=== PATIENT | female | born 1985 | race Caucasian/White ===

== ENCOUNTER 2016-09-23 08:32 | Day surgery (SDC) | payer OTHER ==
[2016-09-16 10:08] LABS: HEMATOCRIT 41.3 % (36.0-47.0); HEMOGLOBIN 14.1 g/dL (12.0-15.5); MEAN CORPUSCULAR HEMOGLOBIN 28.9 pg (27.0-33.4); MEAN CORPUSCULAR HGB CONC 34.1 g/dL (32.0-36.0); MEAN CORPUSCULAR VOLUME 85 fl (80-97); RED BLOOD COUNT 4.86 10^6/uL (3.72-5.28); RED CELL DISTRIBUTION WIDTH 13.3 % (11.5-14.0); WHITE BLOOD COUNT 15.2 10^3/uL (4.0-10.5)
[2016-09-16 10:12] LABS: APPEARANCE,URINE CLEAR; BILIRUBIN,URINE NEGATIVE (NEGATIVE); GLUCOSE, URINE NEGATIVE (NEGATIVE); KETONES,URINE NEGATIVE (NEGATIVE); LEUKOCYTE ESTERASE,URINE NEGATIVE (NEGATIVE); NITRITE,URINE NEGATIVE (NEGATIVE); PROTEIN,URINE NEGATIVE (NEGATIVE); URINE SPECIFIC GRAVITY 1.005; UROBILINOGEN,URINE NEGATIVE mg/dL (<2.0)
[2016-09-16 10:34] LABS: ALANINE AMINOTRANSFERASE 29 U/L (9-52); ALBUMIN 4.8 g/dL (3.5-5.0); ALKALINE PHOSPHATASE 105 U/L (38-126); ANION GAP 11 (5-19); ASPARTATE AMINO TRANSFERASE 19 U/L (14-36); BILIRUBIN,TOTAL 0.5 mg/dL (0.2-1.3); BLOOD UREA NITROGEN 16 mg/dL (7-20); CALCIUM 10.3 mg/dL (8.4-10.2); CARBON DIOXIDE 25 mmol/L (22-30); CHLORIDE 106 mmol/L (98-107); CREATININE RESULT 0.59 mg/dL (0.52-1.25); GLUCOSE 98 mg/dL (75-110); POTASSIUM 4.6 mmol/L (3.6-5.0); SODIUM 142.1 mmol/L (137-145)
[~2016-09-23 08:32] MED LIST: CEFAZOLIN 2 GM/D5W RTU 2 GM/50 ML RTUPB IV PRN; GABAPENTIN 400 MG CAPSULE PO PRN; LIDOCAINE 0.5% INJ-PF (5 MG/ML) 50 ML SDV SUBCUT PRN; RINGERS SOLUTION,LACTATED 1,000 ML IV PRN
[2016-09-23] MEDS ORDERED: BUPIVACAINE HCL 0.25 % INJ/PF (2.5 MG/1 ML) 30 ML VIAL ONE (09:23)
[2016-09-23] MEDS ORDERED: MIDAZOLAM 2 MG/2 ML INJ ONE (10:42)
[2016-09-23] MEDS ORDERED: FENTANYL CITRATE INJ/PF 250 MCG/5 ML AMPULE ONE (10:42)
[2016-09-23] MEDS ORDERED: MORPHINE SULFATE 10 MG/ML INJ ONE (10:43)
[2016-09-23] MEDS ORDERED: PROPOFOL INJ 200 MG/20 ML VIAL IV ONE (10:43)
[2016-09-23] MEDS ORDERED: SUCCINYLCHOLINE CHLORIDE INJ 200 MG/10 ML VIAL ONE (10:57)
[2016-09-23] MEDS ORDERED: ROCURONIUM BROMIDE INJ 50 MG/5 ML VIAL IV ONE (10:57)
[2016-09-23] MEDS ORDERED: LIDOCAINE 2% INJ-PF (20 MG/ML) 10 ML AMPUL ONE (10:57)
[2016-09-23] MEDS ORDERED: GLYCOPYRROLATE INJ 0.4 MG/2 ML VIAL ONE (10:57)
[2016-09-23] MEDS ORDERED: DEXAMETHASONE SOD PHOSPHATE INJ 4 MG/1 ML VIAL ONE (10:57)
[2016-09-23] MEDS ORDERED: ONDANSETRON HCL INJ/PF 4 MG/2 ML SDV ONE (10:57)
[2016-09-23] MEDS ORDERED: NEOSTIGMINE METHYLSULFATE 10 MG/10 ML VIAL ONE (10:57)
[2016-09-23] MEDS ORDERED: METOCLOPRAMIDE HCL INJ/PF 10 MG/2 ML SDV ONE (10:57)
[2016-09-23] MEDS ORDERED: METHYLENE BLUE INJ/PF 10 MG/1 ML SDV ONE (12:24)
[2016-09-23] MEDS ORDERED: OXYCODONE-ACETAMINOPHEN 5-325 MG TABLET PO PRN ×4 (12:26→12:27)
[2016-09-23] MEDS ORDERED: PROMETHAZINE HCL INJ 25 MG/1 ML VIAL IV PRN ×4 (12:26→12:27)
[2016-09-23] MEDS ORDERED: DIPHENHYDRAMINE HCL 50 MG/ML VIAL IV PRN ×2 (12:26→12:27)
[2016-09-23] MEDS ORDERED: MEPERIDINE HCL/PF INJ 25 MG/1 ML DISP.SYRIN IV PRN ×2 (12:26→12:27)
[2016-09-23] MEDS ORDERED: MORPHINE SULFATE 10 MG/ML INJ IV PRN ×2 (12:26→12:27)
[2016-09-23] MEDS ORDERED: FENTANYL CITRATE INJ/PF 100 MCG/2 ML AMPUL IV PRN ×6 (12:26→12:27)
[2016-09-23] MEDS ORDERED: KETOROLAC TROMETHAMINE INJ/PF 30 MG/1 ML SDV ONE (12:55)
--- NOTE | 2016-09-23 13:03 | PDOC DISCHARGE SUMMARY ---
Discharge Summary (SDC) - Discharge Final Diagnosis: Menorrhagia Dysmenorrhea Date of Surgery: 09/23/16 Condition: Good Forms: Post Operative Treatment or Instructions: Robotic assisted total laparoscopic hysterectomy and bilateral salpingectomy Prescriptions: Oxycodone HCl [Oxaydo] 5 mg PO Q4 PRN #30 tablet.orl PRN Reason: Pain Scale Of 3 Referrals: ORLANDO HERNANDEZ MD [NO LOCAL MD] - (Call [phone] to schedule a 2-4 week post op check up and you may use this number for any concerns questions as well. ) Discharge Diet: As Tolerated Respiratory Treatments at Home: Deep Breathing/Coughing Discharge Activity: Activity As Tolerated, Balance Activity w/Rest, No Lifting Over 10 Pounds - over 20 lbs, No Lifting/Push/Pulling, Pelvic Rest, Slowly Increase Activity, No tub bath - you may shower Home Care Assistance: None Needed Report the Following to Your Physician Immediately: Vomiting, Increase in Pain, Fever over 101 Degrees, Unusual Bleeding, Redness, Swelling, Warmth, Drainage- Foul Smelling, Increased Vaginal Bleed, Large Clots
[2016-09-23] MEDS ORDERED: IBUPROFEN 800 MG TABLET PO PRN ×2 (13:26→13:29)
[2016-09-23] MEDS ORDERED: OXYCODONE HCL IR 5 MG TABLET PO PRN (13:58)
[2016-09-23] MEDS ORDERED: ONDANSETRON HCL INJ/PF 4 MG/2 ML SDV IV PRN (13:59)
[2016-09-23] MEDS ORDERED: NICOTINE 14 MG/24 HR PATCH.TD24 TD ONE (14:15)
[2016-09-23] MEDS ORDERED: ACETAMINOPHEN 100 ML IV SCH (18:00)
[2016-09-23 18:48] VITALS: BP 129/83
[2016-09-23] MEDS ORDERED: [UNRECOGNIZED DRUG - OTHER] PO SCH (22:00)
[2016-09-23] MEDS ORDERED: ESCITALOPRAM OXALATE 10 MG TABLET PO SCH (22:00)
[2016-09-24] MEDS ORDERED: NICOTINE 14 MG/24 HR PATCH.TD24 TD SCH (10:00)
--- NOTE | 2016-09-24 15:08 | OPERATIVE REPORT E ---
Operative Report NAME: BETTY BERNSTEIN : 1985 AGE: 30Y DATE OF SURGERY: 09/23/2016 ROOM: 210 PREOPERATIVE DIAGNOSIS: Menorrhagia and dysmenorrhea. POSTOPERATIVE DIAGNOSIS: Menorrhagia and dysmenorrhea. OPERATION: Robotic assisted total laparoscopic hysterectomy with bilateral salpingectomy. PRIMARY SURGEON: ORLANDO HERNANDEZ M.D. CONTRACT ADMINISTRATION MANAGER SURGEON: DR. SAM HENDRICKS. ANESTHESIA: General endotracheal. COMPLICATIONS: None. ESTIMATED BLOOD LOSS: 150 mL. URINE OUTPUT: Clear at the end of the procedure. SPECIMENS: Uterus, cervix, and bilateral fallopian tubes. FINDINGS: The patient has significant scarring in the anterior uterus near the bladder flap, consistent with her 2 prior C-sections. The uterus was moderately fixed and had no vaginal descent and bilateral ovaries looked normal; otherwise, pelvic anatomy unremarkable. INDICATION: This is a 30-year-old patient with a history of menorrhagia and dysmenorrhea and childbearing complete. She was refractory to medical management for the above problems. After discussing the risks, benefits, and alternatives, including but not limited to, observation, further medical management, endometrial ablation, operative hysteroscopy, open abdominal hysterectomy and total vaginal hysterectomy, were all discussed with the patient and she elected for the above procedure. PROCEDURE: After the patient was properly consented, she was taken to the operating room where general anesthesia was introduced with endotracheal intubation. She was transferred to the dorsal lithotomy position using adjustable Tobi stirrups and prepped and draped in the usual sterile fashion. A surgical timeout was held. A Fisher catheter was then placed in the bladder, and we began with placement of the V-Care medium-sized uterine manipulator in the typical fashion. Gloves were changed and we proceeded above where 0.25% plain Marcaine local anesthetic was used supraumbilically. A 12 mm port skin incision was made with a scalpel, followed by a Veress needle introduction into the peritoneal cavity with correct placement ascertained by a drop in CO2 pressure to 2 mmHg. The pneumoperitoneum was established to a pressure of 15 mmHg. A 12 mm bladeless trocar was advanced into the pneumoperitoneum and immediate visualization with the camera demonstrated atraumatic entry. We subsequently placed 2 right and 1 left lateral port following the typical routine of local anesthetic, followed by a skin incision and the placement of the 8 mm ports under direct visualization. With all ports in place, the patient was put in steep Trendelenburg. The robot was then docked and I scrubbed out and proceeded to the robotic console. Pelvic anatomy was inspected and the findings noted above. The uterus was identified by peristalsis in their usual course at the pelvic brim bilaterally. Dissection was begun on the right side using the vessel sealer and the fenestrated bipolar graspers. The tuboovarian ligament was dissected and this dissection was extended toward the utero-ovarian ligament near the uterine cornua, freeing the fallopian tube from its connections. Then the right round ligament was cauterized and transected. Next the broad ligament was opened and dissected inferiorly and anteriorly to create the bladder flap. Several areas of dissection were carefully completed here, reducing the scar and bladder flap inferiorly along the right side. Then the dissection was continued to connect the fallopian tube and utero-ovarian ligament dissection with that of the round ligament dissection. The broad ligament was then opened and the uterine artery was dissected out, identified and cauterized and transected at the area next to the lower uterine segment. Then being very careful to hug the uterus during this portion of the surgery, dissection was continued along the side of the cervix to the top of the *------*. The same dissection was repeated on the left side. The areas of dissection were noted to be hemostatic. Next, the edge of the V-Care cervical cap was identified. The vessel sealer was switched out for the monopolar scissors. Colpotomy was initiated with monopolar cautery and carried around circumferentially until the specimen was free and pulled through the vagina. The vaginal cuff was closed with running V-Loc suture initially with a 2-0 90-day barbed suture. The suture was found to be weak and broke after 2 throws, completing approximately one-third of the vaginal cuff. At this time a new suture was introduced into the peritoneal cavity. This time a 2-0 Monocryl 180-day delayed absorbable suture with barbs was used. The suture line was initiated again at the right cuff angle and oversewn on top of the initial suture and continued to complete the vaginal cuff closure. Again, this was a 180-day delayed absorbable running V-Loc suture. The pelvis was then irrigated copiously and hemostasis was noted to be excellent. The bladder was back-filled with 60 mL of normal saline and found to be intact with no apparent leakage into the peritoneal cavity. The bladder was deflated and a hemostatic agent was applied to the vaginal intraperitoneally. The abdomen was deflated and the robot was undocked and all instruments were removed. The abdomen was desufflated and the ports were removed as well. The patient was taken out of Trendelenburg and attention was turned to the abdomen where the 12 mm port site fascia was closed with 0 Vicryl stitch and the skin of the 8 mm port sites were closed, as well as the 12 mm port site skin with 4-0 Monocryl in a subcuticular fashion, and a Dermabond dressing was applied. The anesthesia was reversed. Sponge, lap, and needle counts were correct at the end of the procedure, and the patient was taken to the PACU in stable condition. DICTATING PHYSICIAN: ORLANDO HERNANDEZ M.D. [id number] PHY#: [id number] ID: [id number] JOB#: [id number] ACCT: [id number] cc:ORLANDO HERNANDEZ M.D. >
== END 2016-09-23 19:18 | disposition home or self-care (01) ==
LOC: OROUT 08:32 → 2N 14:01 → OROUT 19:18
PROVIDERS: ATTEND Obstetrics & Gynecology
PROC: 0UTC4ZZ Resection of Cervix, Percutaneous Endoscopic Approach (ICD-10-PCS; 2016-09-23)
PROC: 0UT74ZZ Resection of Bilateral Fallopian Tubes, Percutaneous Endoscopic Approach (ICD-10-PCS; 2016-09-23)
PROC: 0UT94ZZ Resection of Uterus, Percutaneous Endoscopic Approach (ICD-10-PCS; principal; 2016-09-23 10:30)
DX: N92.0 Excessive and frequent menstruation with regular cycle (principal); N94.6 Dysmenorrhea, unspecified; N73.6 Female pelvic peritoneal adhesions (postinfective); F17.210 Nicotine dependence, cigarettes, uncomplicated; E66.9 Obesity, unspecified; Z79.1 Long term (current) use of non-steroidal anti-inflammatories (NSAID); Z79.899 Other long term (current) drug therapy; Z88.2 Allergy status to sulfonamides; Z88.5 Allergy status to narcotic agent; Z88.1 Allergy status to other antibiotic agents; Z68.37 Body mass index [BMI] 37.0-37.9, adult
CPT/HCPCS: 86900; 86901; 36415; 86850; 85027; 81025; 80053; 81001; 88307 ×2; 58571; J2250; J3490 ×2; J1100; J3010; Q9968; J1885; J2765; J2270; J0330; J2405; J2704; J0690; J0131; 840